=== PATIENT | male | born 1970 | race Caucasian/White ===

== ENCOUNTER 2024-01-08 02:34 | Emergency (ER) | payer MEDICAID ==
[~2024-01-08] VITALS: Ht 162.6 cm; Wt 127.0 kg
[2024-01-08 02:50] VITALS: O2SAT 98
[2024-01-08] MEDS: DIPHENHYDRAMINE 25MG CAPSULE PO ONE (03:15)
[2024-01-08] MEDS: DEXAMETHASONE 4MG TABLET PO ONE (03:15)
[2024-01-08] MEDS: FAMOTIDINE 20MG TABLET PO ONE (03:15)
[2024-01-08] MEDS ORDERED: EPIN0.3P3 IM (03:53)
[2024-01-08] MEDS ORDERED: HYDR45CR12 TP (03:53)
[2024-01-08] MEDS ORDERED: DIPH25CA83 MT (03:53)
[2024-01-08 04:35] VITALS: BP 133/61; PULSE 80; RESP 18; O2SAT 98
== END 2024-01-08 04:36 | disposition home or self-care (01) ==
LOC: ER 02:48
DX: R21 Rash and other nonspecific skin eruption (principal); E11.9 Type 2 diabetes mellitus without complications
CPT/HCPCS: 99284; J8540; Q0163

== ENCOUNTER 2024-07-13 17:38 | Inpatient (IN) | payer MEDICAID ==
[~2024-07-13] VITALS: Ht 167.6 cm; Wt 98.4 kg
[~2024-07-13 17:38] MED LIST: DIPH25CA83 MT; EPIN0.3P3 IM; HYDR45CR12 TP
[2024-07-13 19:04] LABS: BASOPHILS % 0.7 % (0.0-2.0); HEMATOCRIT. 26.1 % (42.0-52.0); HEMOGLOBIN. 8.4 g/dL (14.0-18.0); LYMPHOCYTES % 22.7 % (20.0-50.0); MEAN CORPUSCULAR HGB CONC 32.1 g/dL (31.0-37.0); MEAN CORPUSCULAR VOLUME 93.6 fL (80.0-94.0); MEAN PLATELET VOLUME 8.1 fl (7.4-10.4); MONOCYTES % 6.7 % (2.0-8.0); NEUTROPHILS % 67.9 % (40.0-76.0); PLATELET 230 x1000/uL (130-400); RED BLOOD CELL COUNT 2.79 mill/uL (4.7-6.1); RED CELL DISTRIBUTION WIDTH 14.2 % (11.6-14.6); WHITE BLOOD COUNT 9.9 x1000/uL (4.5-11.0)
[2024-07-13 19:11] LABS: POTASSIUM 5.5 mEq/L (3.5-5.1)
[2024-07-13 19:12] LABS: CALCIUM 8.7 mg/dL (8.7-10.4)
[2024-07-13] MEDS: SODIUM CHLORIDE 0.9% 500 ML IV ONE (20:00)
[2024-07-13 21:22] LABS: TROPONIN I HIGH SENSITIVITY 12 ng/L (3.0-53)
[2024-07-13] MEDS: ACETAMINOPHEN 325MG TABLET PO ONE (21:33)
[2024-07-13] MEDS ORDERED: IPRATROPIUM/ALBUTEROL 0.5-3(2.5)MG/3ML NEB NEB PRN (23:45)
[2024-07-13] MEDS ORDERED: ONDANSETRON HCL 4MG/2ML INJ IV PRN (23:45)
[2024-07-13] MEDS ORDERED: ZOLPIDEM TARTRATE 5MG TABLET PO PRN (23:45)
[2024-07-13] MEDS ORDERED: HYDROCODONE/ACETAMINOPHEN 5/325MG TABLET PO PRN (23:45)
[2024-07-13] MEDS ORDERED: HYDRALAZINE 20MG/ML VIAL IV PRN (23:45)
[2024-07-13] MEDS ORDERED: CLONIDINE 0.1MG TABLET PO PRN (23:45)
[2024-07-13] MEDS ORDERED: ACETAMINOPHEN 325MG TABLET PO PRN (23:45)
[2024-07-14] VITALS (7 sets, daily range): BP systolic 119–162; BP diastolic 58–77; PULSE 72–87; RESP 18–20; TEMP 36.3–36.7; O2SAT 95–99
[2024-07-14 08:07] LABS: BASOPHILS % 0.6 % (0.0-2.0); EOSINOPHILS % 1.9 % (0.0-5.0); HEMATOCRIT. 27.5 % (42.0-52.0); HEMOGLOBIN. 8.7 g/dL (14.0-18.0); LYMPHOCYTES % 23.9 % (20.0-50.0); MEAN CORPUSCULAR HEMOGLOBIN 29.5 pg (28.0-32.0); MEAN CORPUSCULAR HGB CONC 31.8 g/dL (31.0-37.0); MEAN CORPUSCULAR VOLUME 92.8 fL (80.0-94.0); MEAN PLATELET VOLUME 8.6 fl (7.4-10.4); MONOCYTES % 6.7 % (2.0-8.0); NEUTROPHILS % 66.9 % (40.0-76.0); PLATELET 214 x1000/uL (130-400); RED BLOOD CELL COUNT 2.96 mill/uL (4.7-6.1); RED CELL DISTRIBUTION WIDTH 14.5 % (11.6-14.6); WHITE BLOOD COUNT 8.9 x1000/uL (4.5-11.0)
[2024-07-14 08:14] LABS: CALCIUM 8.6 mg/dL (8.7-10.4)
[2024-07-14 08:21] LABS: TROPONIN I HIGH SENSITIVITY 11 ng/L (3.0-53)
[2024-07-14] MEDS: ENOXAPARIN 30MG/0.3ML SYR SUBCUT SCH (08:46)
[2024-07-14] MEDS: PANTOPRAZOLE SODIUM 40 MG/VIAL IV SCH (08:46)
[2024-07-14 09:16] LABS: CREATININE 5.6 mg/dL (0.6-1.3)
[2024-07-14] MEDS: FUROSEMIDE 40MG TABLET PO SCH (15:10)
[2024-07-14 16:43] LABS: TROPONIN I HIGH SENSITIVITY 9 ng/L (3.0-53)
[2024-07-14 17:01] LABS: HEPATITIS B SURFACE AB 3.6 mIU/mL (<10)
[2024-07-14 17:13] LABS: HEPATITIS B SURFACE ANTIGEN NEGATIVE (Negative)
[2024-07-14 17:34] LABS: HEPATITIS B CORE AB IGM NEGATIVE (Negative)
[2024-07-14 17:35] LABS: HEPATITIS C AB NON REACTIVE (Neg) (Negative)
[2024-07-14 20:02] LABS: CLARITY URINE CLEAR (CLEAR); COLOR URINE YELLOW (YELLOW); GLUCOSE URINE TRACE (NEGATIVE); KETONES URINE NEGATIVE (NEGATIVE); LEUKOCYTE ESTERASE URINE NEGATIVE (NEGATIVE); NITRITE URINE NEGATIVE (NEGATIVE); OCCULT BLOOD URINE 1+ (NEGATIVE); PROTEIN URINE 3+ (NEGATIVE); SPECIFIC GRAVITY URINE 1.013 (1.005-1.030); UROBILINOGEN URINE 0.2 E.U./dL (0.2-1.0)
[2024-07-14 20:17] LABS: *AMPHETAMINES SCREEN URINE NEGATIVE (NEGATIVE); *BARBITURATES SCREEN URINE NEGATIVE (NEGATIVE); *BENZODIAZEPINES SCREEN URINE NEGATIVE (NEGATIVE); *COCAINE SCREEN URINE NEGATIVE (NEGATIVE); CANNABINOID URINE SCREEN NEGATIVE (NEGATIVE); ECSTASY MDMA SCREEN URINE NEGATIVE (NEGATIVE); METHADONE URINE SCREEN NEGATIVE (NEGATIVE); OPIATES URINE SCREEN NEGATIVE (NEGATIVE); PHENCYCLIDINE URINE SCREEN NEGATIVE (NEGATIVE)
[2024-07-14 20:19] LABS: WBC URINE NONE SEEN /hpf (0-2)
[2024-07-14 20:20] LABS: BACTERIA URINE NONE SEEN; SQUAMOUS EPITHELIAL CELL URINE RARE /lpf (RARE/1+)
[2024-07-14] MEDS: LISINOPRIL 20MG TABLET PO SCH (21:02)
[2024-07-14] MEDS: HYDRALAZINE HCL 25MG TABLET PO SCH (21:02)
[2024-07-14] MEDS: ATORVASTATIN CALCIUM 20MG TABLET PO SCH (21:02)
[2024-07-14] MEDS: TAMSULOSIN HCL 0.4MG SR CAPSULE PO SCH (21:03)
[2024-07-15 04:00] VITALS: BP 146/58; PULSE 78; RESP 19; TEMP 36.9; O2SAT 98
[2024-07-15 07:15] LABS: CALCIUM 8.6 mg/dL (8.7-10.4)
[2024-07-15 07:21] LABS: BASOPHILS % 0.4 % (0.0-2.0); EOSINOPHILS % 2.3 % (0.0-5.0); HEMATOCRIT. 25.3 % (42.0-52.0); HEMOGLOBIN. 8.2 g/dL (14.0-18.0); LYMPHOCYTES % 23.4 % (20.0-50.0); MEAN CORPUSCULAR HEMOGLOBIN 29.7 pg (28.0-32.0); MEAN CORPUSCULAR HGB CONC 32.3 g/dL (31.0-37.0); MEAN CORPUSCULAR VOLUME 91.9 fL (80.0-94.0); MEAN PLATELET VOLUME 8.3 fl (7.4-10.4); MONOCYTES % 6.5 % (2.0-8.0); NEUTROPHILS % 67.4 % (40.0-76.0); PLATELET 223 x1000/uL (130-400); RED BLOOD CELL COUNT 2.75 mill/uL (4.7-6.1); WHITE BLOOD COUNT 9.2 x1000/uL (4.5-11.0)
[2024-07-15 08:00] VITALS: BP 130/59; PULSE 78; RESP 20; TEMP 36.7; O2SAT 98
[2024-07-15] MEDS: FUROSEMIDE 40MG TABLET PO SCH (09:24)
[2024-07-15] MEDS: SODIUM BICARBONATE 650MG TABLET PO SCH (09:24)
[2024-07-15] MEDS: LACTULOSE 20G/30ML UDC PO NR (11:06)
[2024-07-15 12:00] VITALS: BP 123/66; PULSE 82; RESP 14; TEMP 36.4; O2SAT 100
[2024-07-15 16:00] VITALS: BP 130/67; PULSE 81; RESP 16; TEMP 37; O2SAT 98
[2024-07-15 20:00] VITALS: BP 158/73; PULSE 87; RESP 18; TEMP 36.4; O2SAT 97
[2024-07-15] MEDS: FERROUS SULFATE 325MG TABLET PO SCH (21:28)
[2024-07-15] MEDS: EPOETIN ALFA-EPBX 4,000 UNIT/ML VIAL SUBCUT NR (21:30)
[2024-07-16] VITALS (7 sets, daily range): BP systolic 102–162; BP diastolic 65–103; PULSE 17–88; RESP 16–20; TEMP 36.4–36.9; O2SAT 98–100
[2024-07-16 07:45] LABS: BASOPHILS % 0.7 % (0.0-2.0); EOSINOPHILS % 2.6 % (0.0-5.0); HEMATOCRIT. 25.4 % (42.0-52.0); HEMOGLOBIN. 8.3 g/dL (14.0-18.0); LYMPHOCYTES % 21.7 % (20.0-50.0); MEAN CORPUSCULAR HEMOGLOBIN 29.7 pg (28.0-32.0); MEAN CORPUSCULAR HGB CONC 32.8 g/dL (31.0-37.0); MEAN CORPUSCULAR VOLUME 90.3 fL (80.0-94.0); MEAN PLATELET VOLUME 8.4 fl (7.4-10.4); MONOCYTES % 6.5 % (2.0-8.0); NEUTROPHILS % 68.5 % (40.0-76.0); PLATELET 220 x1000/uL (130-400); RED BLOOD CELL COUNT 2.81 mill/uL (4.7-6.1); WHITE BLOOD COUNT 8.3 x1000/uL (4.5-11.0)
[2024-07-16 07:48] LABS: POTASSIUM 5.2 mEq/L (3.5-5.1)
[2024-07-16 07:49] LABS: CALCIUM 8.6 mg/dL (8.7-10.4)
[2024-07-16 09:07] LABS: COMPLEMENT C4 22 mg/dL (12-38)
[2024-07-16 09:22] LABS: CREATININE 6.4 mg/dL (0.6-1.3)
[2024-07-16 13:07] LABS: ANTI-NUCLEAR ANTIBODIES DIRECT Negative (Negative)
[2024-07-17] VITALS: BP 155/69; PULSE 80; RESP 18; TEMP 36.9; O2SAT 99
[2024-07-17 04:00] VITALS: BP 144/65; PULSE 82; RESP 18; TEMP 36.7; O2SAT 100
[2024-07-17 06:55] LABS: POTASSIUM 4.9 mEq/L (3.5-5.1)
[2024-07-17 06:56] LABS: CALCIUM 8.7 mg/dL (8.7-10.4)
[2024-07-17 07:37] LABS: CREATININE 5.7 mg/dL (0.6-1.3)
[2024-07-17 08:00] VITALS: BP 143/72; PULSE 85; RESP 16; TEMP 36.7; O2SAT 100
[2024-07-17] MEDS: FAMOTIDINE 20MG/2ML VIAL IV SCH (10:36)
[2024-07-17 12:00] VITALS: BP 159/71; PULSE 81; RESP 17; TEMP 36.8; O2SAT 100
[2024-07-17 16:00] VITALS: BP 175/76; PULSE 76; RESP 18; TEMP 36.7; O2SAT 97
[2024-07-17 16:03] VITALS: BP 175/76; PULSE 76; TEMP 98.1; O2SAT 97
== END 2024-07-17 17:30 | disposition home or self-care (01) | DRG 469 ==
LOC: ER 17:38 → 6WST 22:15 → EDBEDREQ 22:23 → EDBEDREQTM 22:23 → 5WST 23:44
PROVIDERS: ADMIT Internal Medicine; ATTEND Internal Medicine
DX: N17.9 Acute kidney failure, unspecified (principal); E87.0 Hyperosmolality and hypernatremia; E87.20 Acidosis, unspecified; I12.0 Hypertensive chronic kidney disease with stage 5 chronic kidney disease or end stage renal disease; D63.1 Anemia in chronic kidney disease; E87.5 Hyperkalemia; N18.5 Chronic kidney disease, stage 5; E11.22 Type 2 diabetes mellitus with diabetic chronic kidney disease; E78.5 Hyperlipidemia, unspecified; E87.70 Fluid overload, unspecified; R80.9 Proteinuria, unspecified
CPT/HCPCS: 36415; 71045; 76770; 80048; 80305; 81003; 83880; 84484; 85025; 85651; 86038; 86160; 86705; 86706; 87340; 93005; 93306; 93970; 99285; J0885; J1650; J2470; J3490